=== PATIENT | female | born 1985 | race Caucasian/White ===

== ENCOUNTER 2021-06-16 10:37 | Emergency (ER) | payer OTHER ==
[~2021-06-16] VITALS: Ht 170.2 cm; Wt 88.9 kg
[2021-06-16] MEDS ORDERED: CARAFATE1 GM PO (11:12)
[2021-06-16] MEDS ORDERED: MAGNESIUM/ALUMINUM/SIMETHICONE 30 ML UDC ONE (11:37)
[2021-06-16] MEDS ORDERED: BELLADONNA ALK/PHENOBARBITAL 5 ML UDC ONE (11:37)
[2021-06-16] MEDS ORDERED: LIDOCAINE VISC 2% SOLN 15 ML UDC ONE (11:37)
[2021-06-16] MEDS ORDERED: DONNATAL/LIDOCAINE/MAALOX 30 ML SUSP PO SCH (15:00)
== END 2021-06-16 11:41 | disposition home or self-care (01) ==
LOC: ER 10:59
DX: K29.70 Gastritis, unspecified, without bleeding (principal); E03.9 Hypothyroidism, unspecified; F41.9 Anxiety disorder, unspecified
CPT/HCPCS: 99282